=== PATIENT | male | born 1995 | race Caucasian/White ===

== ENCOUNTER → 2017-05-03 11:00 | Outpatient (RCR) | payer OTHER | END | disposition home or self-care (01) | LOC: PT 04-12 08:55 | DX: M25.562 Pain in left knee (principal) | CPT/HCPCS: G0283-GP ==

== ENCOUNTER 2017-06-14 13:00 | Outpatient (RCR) | payer OTHER | END 2017-08-01 | disposition home or self-care (01) | LOC: PT | DX: Z47.89 Encounter for other orthopedic aftercare (principal) ==

== ENCOUNTER → 2020-10-30 | Outpatient (CLI) | payer OTHER | LOC: PT 07:58 → EDSTATUS 07:59 | DX: M75.21 Bicipital tendinitis, right shoulder (principal); S46.811A Strain of other muscles, fascia and tendons at shoulder and upper arm level, right arm, initial encounter; G89.11 Acute pain due to trauma ==

== ENCOUNTER 2020-11-10 10:54 | Outpatient (RCR) | payer OTHER | END 2021-01-11 17:00 | disposition still patient (30) | LOC: PT 10:54 | DX: M75.21 Bicipital tendinitis, right shoulder (principal); Z98.890 Other specified postprocedural states ==